=== PATIENT | male | born 1960 | race Caucasian/White ===

== ENCOUNTER 2021-12-14 07:48 | Outpatient (CLI) | payer OTHER, SELFPAY ==
--- NOTE | 2021-12-14 08:08 | ECG_ITS ---
Measurements Intervals [place] Rate: 49 P: 57 MA: 171 QRS: 32 QRSD: 90 T: 59 QT: 432 QTc: 390 Interpretive Statements SINUS BRADYCARDIA BASELINE ARTIFACT NONSPECIFIC T-WAVE ABNORMALITY BORDERLINE ECG NO PREVIOUS ECG AVAILABLE FOR COMPARISON Electronically Signed On 12-14-2021 16:21:50 CDT by Grant Mckeon M.D.
[2021-12-14 08:48] LABS: INR 1.2; Partial Thromboplastin Time 28.2 SECONDS (22.3-36.8); Prothrombin Time 14.4 Seconds (11.1-14.7)
== END 2021-12-14 07:49 | disposition home or self-care (01) ==
LOC: ANHSURGERY 08:01
PROVIDERS: Visit Provider Urology
DX: N20.0 Calculus of kidney (principal); F17.200 Nicotine dependence, unspecified, uncomplicated; Z01.818 Encounter for other preprocedural examination; R94.31 Abnormal electrocardiogram [ECG] [EKG]
CPT/HCPCS: 36415; 85610; 85730; 87086; 93005

== ENCOUNTER 2021-12-18 00:57 | Day surgery (SDC) | payer OTHER, SELFPAY ==
[2021-12-11 15:35] VITALS: BMI 26.6
--- NOTE | 2021-12-11 15:43 | SUR.PREOP ---
Report to the Outpatient Waiting Room, entrance under the green pavilion located off [facility], at time _1030 on date _12/18/21 . OR Time: _1230 . - You and your visitor will be asked to self-screen and do not enter if you have any COVID symptoms. - Only one visitor and NO children visitors are allowed at this time. - The patient visitor is requested to leave or wait in car when not with patient due to restrictions. - A mask is required within the hospital. Patients may have clear liquids (water, carbonated beverages, clear teas, apple juice) until 3 hours prior to surgery with a maximum of 20 ounces. - No food from midnight until time of surgery - Infants may have breast milk until 4 hours before surgery, infant formula 6 hours prior to surgery. - Children will be allowed to drink immediately following surgery. If applicable, please bring a bottle or sippy cup to assist with drinking. Juice, water, soda, and popsicles are readily available. For infants on formula, please bring formula the day of surgery. Pacifiers are allowed. Take the following medications with a SIP of water the morning of surgery: n/a Medications to discontinue per physician n/a Date to take last dose___n/a Please no make-up, nail nepali, hairspray, perfume, deodorant, or body powder the day of surgery. No jewelry (including any body piercings) or valuables the day of surgery, leave them at home. Please take a shower or bath the night before, or the morning of, surgery with an antibacterial soap. Wear comfortable, loose fitting clothing. Children are encouraged to wear pajamas. - Jewelry must be removed prior to entering the operating room. Rings and piercings that are not removed may be cut off. - The hospital will not accept responsibility for valuables. - Please leave all valuables, including medications, at home the day of surgery. If you are going home after surgery, a licensed fuel truck driver must drive you home. - NO public transportation without another adult. - We recommend that an adult stay with you for 24 hours following discharge. - We also recommend that you do not drive, make important decision, drink alcoholic beverages, or take any drugs that were not prescribed by your health care provider for at least 24 hours after your discharge time. For Pediatric surgeries, we recommend two adults accompany the child home (only one inside the building at this time). Follow any additional instructions given to you from your surgeon. If you or anyone in your household have experienced Covid symptoms in the past week, please notify your surgeon or the nurse liaison at the phone number below for possible testing. Telephone instructions given to _ang hill and asked if any additional questions and then verbalized understanding. Patient advised to call surgeon office or pre surgery nurse liaison [phone] if any additional questions.
--- NOTE | 2021-12-17 14:55 | P.PNAN_ITS ---
Anes - Initial Pre Proc Eval Procedure: Operation Date: 12/18/21 12:30 Proposed Procedures p Left Ureteral Extracorporeal Shock Wave Lithotripsy - Sukhwinder Orozco MD Date/Time: 12/17/21 14:55 Surgeon: Sukhwinder Orozco MD Pre Op Diagnosis: left ureteral kidney stone Patient Data Age: 61 Gender: M Height: 1.75 m Weight: 81.81 kg Allergies Allergy/AdvReac Type Severity Reaction Status Date / Time No Known Allergies Allergy Verified 12/11/21 15:16 Home Medications Medication Instructions Recorded Confirmed Type hydrocodone 10 mg-acetaminophen 1 tablet PO PRN 12/11/21 12/11/21 History 325 mg tablet tamsulosin 0.4 mg capsule 0.4 mg PO DAILY 12/11/21 12/11/21 History Patient hx anesthesia problems: none Family hx anesthesia problems: none Results Review: All pre-operative results and documents have been reviewed as part of the pre- operative evaluation. PMFSH Past Medical History Medical History Overweight (BMI 25.0-29.9) Smoker Social History Social History Smoking status: Current every day smoker Tobacco type: cigarettes Additional smoking assessment comments: 1/2ppd x40 Alcohol intake: current Drinks per week: 1 Living arrangements: with family Spiritual care concerns: No Anes - Eval Final PreProcedure Day of Procedure 12/17/21 14:55 Patient weight: overweight Heart: regular rate and rhythm Lungs: clear to auscultation and normal air movement Airway: Mallampati scale class II Neurological: alert and oriented Last oral intake: >/= 8 hours ASA classification: II Emergent: no Anesthetic plan: proceed Anesthesia type and monitoring: general LMA Results Review: All pre-operative results and documents have been reviewed as part of the pre- operative evaluation. Informed Consent: The patient's anesthetic plan and its attendant risks and benefits were discussed with the patient/family/POA. Questions were solicited and answers provided to the satisfaction of the patient/family/POA.
[2021-12-18] VITALS (7 sets, daily range): BP systolic 112–132; BP diastolic 70–96; PULSE 52–60; RESP 12–16; TEMP 36.2–36.7; O2SAT 99–100
--- NOTE | ~2021-12-18 | XR_ITS ---
EXAMINATION: XR abdomen/kub 1V DATE: 12/18/2021 10:36 INDICATION: Kidney stone. TECHNIQUE: A supine view of the abdomen on 2 radiographs was obtained. COMPARISON: None. FINDINGS: There are no dilated loops of bowel. There is a moderate volume of stool in the colon. The kidneys are obscured by bowel. There is a 7 mm density in the area of proximal left ureter at L3. The re are calcifications in the pelvis bilaterally. IMPRESSION: 1. 7 mm density in the area of proximal left ureter at L3, which may be a ureteral stone. 2. Calcifications in the pelvis, likely phleboliths. Distal ureteral stone cannot be excluded. Reviewed, dictated and finalized at location A. IMPRESSION: 1. 7 mm density in the area of proximal left ureter at L3, which may be a urete ral stone. 2. Calcifications in the pelvis, likely phleboliths. Distal ureteral stone bobby ot be excluded.
--- NOTE | 2021-12-18 07:00 | WPDHPUPDATE1 ---
History and Physical Update Update Date/Time: 12/18/21 07:00 History and Physical has been reviewed, including an updated exam of the patient. There are NO changes in the patient's condition. Risks, benefits, and alternatives have been discussed and questions answered. Patient agrees to proceed with procedure.
[2021-12-18] MEDS: LACTATED RINGERS 1,000 ML 30 ML IV CONT (11:00)
[2021-12-18] MEDS: ceFAZolin 2 GM/D5W 50 ML 2 GM/50 ML BAG IVPB (12:26)
--- NOTE | 2021-12-18 12:56 | W.PM.PROC2 ---
Procedure Note - Detailed Date of Procedure 12/18/21 Pre-op Diagnosis Left ureteral stone Post-op Diagnosis Same Procedure Performed Left ESWL Surgeon Sukhwinder Orozco MD Description of Procedure The patient was brought to the operative suite where he was placed in the supine position on the Dornier lithotripsy table. The focal point of the lithotripter was placed at a 7-8mm left mid-ureteral calculus. A total of 2500 shocks were delivered at a power setting of 4. There appeared to be good fragmentation of the stone. The patient tolerated the procedure well and was taken to the recovery room in good condition. Drains No Packing No Pathology None sent Complications No immediate complications Condition Stable
== END 2021-12-18 14:26 | disposition home or self-care (01) ==
PROVIDERS: Visit Provider Urology
PROC: (CPT 50590; principal; 2021-12-18 12:30)
DX: N20.1 Calculus of ureter (principal); N23 Unspecified renal colic; R31.29 Other microscopic hematuria; F17.210 Nicotine dependence, cigarettes, uncomplicated
CPT/HCPCS: 50590; 74018; J0690; J1100; J2250; J2405; J2704; J3010; J7120

== ENCOUNTER 2024-06-14 13:53 | Day surgery (SDC) | payer MEDICARE, OTHER, SELFPAY ==
[2024-06-14] VITALS (7 sets, daily range): BP systolic 134–158; BP diastolic 80–98; PULSE 66–78; RESP 12–23; TEMP 36.3–36.8; O2SAT 92–99
--- NOTE | ~2024-06-14 | XR_ITS ---
EXAMINATION: XR abdomen/kub 1V DATE: 06/14/2024 15:15 INDICATION: Kidney stone. Left flank pain. TECHNIQUE: A supine view of the abdomen on 2 radiographs was obtained. COMPARISON: Abdomen radiographs 12/18/2021 FINDINGS: There is a 2.7 x 1.3 cm calcification in the expected area of proximal left ureter. There a re phleboliths in the pelvis. There are no dilated loops of bowel. IMPRESSION: 1. 2.7 x 1.3 cm stone in proximal left ureter. Reviewed, dictated and finalized at location A. OMETRICS PROFESSOR
--- NOTE | ~2024-06-14 | XR_ITS ---
CORRECTED REPORT moved report and images to [id number] [facility] [place] This report was recreated on 06/18/24. 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 TECHNIQUE: 39 intraoperative fluoroscopic views of the abdomen and pelvis were obtained. I was not present. Fluoroscopy exposure time was 59 seconds. COMPARISON: Abdomen radiograph 06/14/2024 FINDINGS: There is a stone in proximal left ureter. The left-sided retrograde pyelogram demonstrates hydronephrosis. The final images demonstrate a left internal ureteral stent in expected position. IMPRESSION: 1. Stone in proximal left ureter with left-sided hydronephrosis 2. Left internal ureteral stent in expected position. Reviewed, dictated and finalized at location A. ATAL SOCIAL WORKER MTDD
--- OUTSIDE RECORDS SUMMARY | 2024-06-14 13:57 | XMS_ITS ---
Author Organization Unknown Medications Medication Instructions Effective Dates (start - stop) Status pravastatin sodium 20 MG Ora l Tablet - Completed cyclobenzaprine hydrochlorid e 10 MG Oral Tablet - Completed pravastatin sodium 40 MG Ora l Tablet - Completed atorvastatin 20 MG Oral Tablet 2023-02-24 T00:00:00Z - Completed acetaminophen 325 MG / hydro codone bitartrate 5 MG Oral Tablet - Completed pravastatin sodium 20 MG Ora l Tablet - Completed meloxicam 15 MG Oral Tablet [id number] :00:00Z - Completed Patient Care team information Name Category Status Period Participants - - Proposed period not known -
--- OUTSIDE RECORDS SUMMARY | 2024-06-14 13:57 | XMS_ITS | Encounter Summary ---
Author Organization [facility] Address [facility] [place] [address] Care Team Providers Care Acid Wash Operator Name Role Phone Kenny Franklin MD Primary Care Provider [phone] Encounter Details Date Type Department Care Team (Latest Contact Info) Description 06/14/2024 Travel Social History Tobacco Use Types Packs/Day Years Used Date Smoking Tobacco: Every Day Cigarettes Smokeless Tobacco: Never Alcohol Use Standard Drinks/Week Comments Not Currently 0 (1 standard drink = 0.6 oz pur e alcohol) Sex and Gender Information Value Date Recorded Sex Assigned at Not on file Legal Sex Male 10:08 PM TOBACCO EDUCATOR Gender Identity Not on file Sexual Orientation Not on file documented as of this encounter Plan of Treatment Upcoming Encounters Date Type Department Care Team (Late st Contact Info) Description 06/19/2024 8:13 AM TOBACCO EDUCATOR Hospital Encounter [place] [address] [address] [place] [address] [place] [id number] 06/19/2024 8:13 AM TOBACCO EDUCATOR Anesthesia Event [place] [address] [address] Cassius Moreno CRNA [facility] [place] [address] 06/19/2024 8:13 AM TOBACCO EDUCATOR - 06/19/2024 9:50 AM TOBACCO EDUCATOR Surgery [place] [address] [address] [place] [address] [place] [phone] EXTRACOROPOREAL SHOCK WAVE LITHOTRIPSY Scheduled Procedures Name Priority Associated Diagnoses Date/Ti me EXTRACOROPOREAL SHOCK WAVE LITHOTRIPSY N20.1, LEFT URETERAL STONE 06/19/2024 8:13 AM TOBACCO EDUCATOR CYSTOSCOPY RETROGRADES STENT INSERTION N20.1, LEFT URETERAL STONE 06/19/2024 8:13 AM TOBACCO EDUCATOR documented as of this encounter Visit Diagnoses Not on filedocumented in this encounter Care Teams Acid Wash Operator Relationship Specialty Start Date End Date Kenny Franklin MD [address] [place] [address] PCP - General FAMILY PRACTICE 07/31/20 documented as of this encounter
--- OUTSIDE RECORDS SUMMARY | 2024-06-14 13:57 | XMS_ITS | Clinical Summary ---
Author Organization [facility] Address [address] [place] [address] Care Team Providers Care Adult Care Manager Name Role Phone Kenny Franklin MD Primary Care Provider [phone] Allergies No known active allergies Medications lisinopril (PRINIVIL) 10 MG tablet Take 1 tablet (10 mg total) by mouth daily. Active HYDROcodone-acetam inophen 5-325 MG tabletIndications: Acute Pain < 7 Day Supply Take 1 tablet by mouth every 6 (six) hours as needed. Indications : Acute Pain < 7 Day Supply 20 tablet 1 06/14/19 25 Discontin ued(Error ) ondansetron 4 MG disintegrating tablet Take 1 tablet (4 mg total) by mouth every 8 (eight) hours as needed. 20 tablet 1 06/14/19 25 Discontin ued(Error ) azithromycin (ZITHROMAX) 250 MG tablet Take 2 tablets (500 mg total) by mouth daily. Take 2 tablets by mouth on day one then 1 daily for four days. 6 tablet 1 06/14/19 25 Discontin ued(Error ) Encounters Date Type Department Care Team Description 06/14/2024 Travel from Last 3 Months Social History Tobacco Use Types Packs/Day Years Used Date Smoking Tobacco: Every Day Cigarettes Smokeless Tobacco: Never Tobacco Cessation:Ready to Q uit: Not Asked; Counseling Given: Not Answered Alcohol Use Standard Drinks/Week Comments Not Currently 0 (1 standard drink = 0.6 oz pur e alcohol) Sex and Gender Information Value Date Recorded Sex Assigned at Not on file Legal Sex Male 10:08 PM EDUCATION ASSISTANT Gender Identity Not on file Sexual Orientation Not on file Last Filed Vital Signs Vital Sign Reading Time Taken Comments Blood Pressure 105/67 07/31/2020 6:00 AM CDT Pulse 78 07/31/2020 6:00 AM CDT Temperature 36.8 C (98.2 F) 07/31/2020 12:41 AM CDT Respiratory Rate 18 07/31/2020 6:00 AM CDT Oxygen Saturation 94% 07/31/2020 6:00 AM CDT Inhaled Oxygen Concentration - - Weight 90.7 kg (200 lb) 06/14/2024 8:40 AM EDUCATION ASSISTANT Height 175.3 cm (5' 9 ) 06/14/2024 8:40 AM EDUCATION ASSISTANT Body Mass Index 29.53 06/14/2024 8:40 AM EDUCATION ASSISTANT Plan of Treatment Upcoming Encounters Date Type Department Care Team (Late st Contact Info) Description 06/19/2024 8:13 AM EDUCATION ASSISTANT Hospital Encounter [address] [place] [address] [place] [address] [place] [phone] 06/19/2024 8:13 AM EDUCATION ASSISTANT Anesthesia Event [address] [place] [address] Cassius Moreno CRNA [facility] [employer] [place] [address] 06/19/2024 8:13 AM EDUCATION ASSISTANT - 06/19/2024 9:50 AM EDUCATION ASSISTANT Surgery [address] [place] [address] [place] [address] [place] [phone] EXTRACOROPOREAL SHOCK WAVE LITHOTRIPSY Scheduled Procedures Name Priority Associated Diagnoses Date/Ti ar EXTRACOROPOREAL SHOCK WAVE LITHOTRIPSY N20.1, LEFT URETERAL STONE 06/19/2024 8:13 AM EDUCATION ASSISTANT CYSTOSCOPY RETROGRADES STENT INSERTION N20.1, LEFT URETERAL STONE 06/19/2024 8:13 AM EDUCATION ASSISTANT Health Maintenance Due Date Last Done Comments Colorectal Cancer Screening Colonoscopy (10 Years) 1960 Pneumococcal Vaccine: 65+ Years (1 of 2 - PCV) 01/15/1964 Hepatitis C 01/15/1976 DTaP, Tdap and Td Vaccines ( 1 - Tdap) 1977 Zoster Vaccines (1 of 2) 01/15/2008 Annual Medicare Wellness Visit 2023 COVID-19 Vaccine (3 - 2023-2 5 season) 2023 07/20/2020, 06/29/2020 Influenza Adult (#1) 2024 RSV Immunization or 60+ Years (1 - 1-dose 75+ series) 2033 AAA SCREENING Completed 12/11/2021, 09/04/2020, 07/31/2020 Meningococcal B Vaccine Aged Out No l onger eligible based on patient's age to complete this topic Meningococcal Vaccine Aged Out No shira tammy eligible based on patient's age to complete this topic RSV Immunizations Under 20 Months Aged Out No longer eligible b ased on patient's age to complete this topic Procedures Procedure Name Priority Date/Time Associated Diagnosis Comments CT ABD+PEL WO CON SHARITA 12/11/2021 7:0 0 AM CDT Renal colic from Last 3 Months or Most Recently Relevant to Health Maintenance Results * CT ABD+PEL WO CON (12/11/2021 7:00 AM CDT) Anatomical Region Laterality Modality Abdomen Computed Tomogra phy 12/11/2021 7:05 AM CDT Impressions 12/11/2021 7:19 AM CDT IMPRESSION: 1) 8 mm in diameter stone proximal left ureter causing moderate obstruction. 2. No acute inflammatory change, abscess or ascites. 3. No evidence of mechanical bowel obstruction or perforation. Ordered By: ANASTASIA ROBINS III Interpreted By: Aidan Montes MD, 12/11/2021 7:05 AM Narrative 12/11/2021 7:19 AM CDT Examination: CT ABD+PEL WO CON Exam time: 12/11/2021 7:00 AM Clinical history: Left flank pain Comparison: 09/04/2020 Technique: Axial images obtained from xiphoid process to pubic symphysis without contrast using low-dose CT technique. Sagittal and coronal reconstruction. Findings: CT ABDOMEN: Visualized portions of the lung bases demonstrate no acute abnormality. The liver is normal in size. No significant focal intrahepatic lesion. No evidence of cholelithiasis nor gallbladder wall thickening. The spleen, pancreas, and the adrenal glands are unremarkable. There is some nonspecific perirenal stranding bilaterally left greater than right. There is an 8 mm stone in the proximal left ureter causing moderate obstruction. The distal left ureter is unremarkable. No evidence of right ureteral stone nor hydronephrosis. Right renal cyst unchanged. No evidence of solid renal mass lesion. There is no acute inflammatory change, abscess or ascites. No evidence of mechanical bowel obstruction nor perforation. Abdominal aorta and IVC are unremarkable. No significant lymphadenopathy. CT PELVIS: No evidence of pelvic mass nor adenopathy. No acute inflammatory change, abscess or ascites. Procedure Note Aidan Montes MD - 12/11/2021 Examination: CT ABD+PEL WO CON Exam time: 12/11/2021 7:00 AM Clinical history: Left flank pain Comparison: 09/04/2020 Technique: Axial images obtained from xiphoid process to pubic symphysiswithout contrast using low-dose CT technique. Sagittal and coronalreconstruction. Findings: CT ABDOMEN: Visualized portions of the lung bases demonstrate no acuteabnormality. The liver is normal in size. No significant focal intrahepatic lesion. Noevidence of cholelithiasis nor gallbladder wall thickening. The spleen, pancreas, and the adrenal glands are unremarkable. There is some nonspecific perirenal stranding bilaterally left greaterthan right. There is an 8 mm stone in the proximal left ureter causingmoderate obstruction. The distal left ureter is unremarkable. No evidenceof right ureteral stone nor hydronephrosis. Right renal cyst unchanged. Noevidence of solid renal mass lesion. There is no acute inflammatory change, abscess or ascites. No evidence ofmechanical bowel obstruction nor perforation. Abdominal aorta and IVC areunremarkable. No significant lymphadenopathy. CT PELVIS: No evidence of pelvic mass nor adenopathy. No acuteinflammatory change, abscess or ascites. IMPRESSION: 1) 8 mm in diameter stone proximal left ureter causing moderateobstruction. 2. No acute inflammatory change, abscess or ascites. 3. No evidence of mechanical bowel obstruction or perforation. Ordered By: ANASTASIA ROBINS III Interpreted By: Aidan Montes MD, 12/11/2021 7:05 AM Anastasia Robins III, MD CT Final Re sult from Last 3 Months or Most Recently Relevant to Health Maintenance Insurance [employer] [facility] MEDICARE Care Teams Adult Care Manager Relationship Specialty Start Date End Date Kenny Franklin MD [address] [place] [address] PCP - General FAMILY PRACTICE 07/31/20
--- NOTE | 2024-06-14 14:55 | ED_ITS ---
HPI - Male Genitourinary General Chief complaint: Urogenital-Male Stated complaint: sent from urology for kidney stone Time Seen by Provider: 06/14/24 14:45 Focused HPI: This is a 64 year old male that presents to the ER for kidney stone on the left side. Reports he has had pain since Tuesday night. Reports associated nausea. Reports history of kidney stones and previous lithotripsy. He had a CT scan on Tuesday at [facility] that showed a kidney stone. Reports worsening pain today. GENERAL: Well-appearing, well-nourished, and in no acute distress. HEAD: Normocephalic, atraumatic. CHEST: Clear to auscultation. ?No respiratory distress. HEART: Regular rate and rhythm.? NEURO: ?Alert and oriented x3. Patient screened in triage and initial orders placed.? ?Additional care and disposition to be based upon?diagnostic testing and treatment. Source: patient Mode of arrival: ambulatory Limitations: no limitations Related Data Home Medications ?Medication ?Instructions ?Recorded ?Confirmed ?Last Taken ?Type hydrocodone 10 mg-acetaminophen 1 tablet PO PRN 12/11/21 12/18/21 Unknown History 325 mg tablet tamsulosin 0.4 mg capsule 0.4 mg PO DAILY 12/11/21 12/18/21 Unknown History Allergies Allergy/AdvReac Type Severity Reaction Status Date / Time No Known Allergies Allergy Verified 06/14/24 13:53 Review of Systems 2 Review of Systems: All systems reviewed & are unremarkable except as noted in HPI and below PMFSH Past Medical History Medical History (Updated 06/14/24 @ 15:53 by Leah Hanson PA-C) History of kidney stones Smoker Overweight (BMI 25.0-29.9) Social History Social History Smoking status: Current every day smoker Tobacco type: cigarettes Additional smoking assessment comments: 1/2ppd x40 Alcohol intake: current Drinks per week: 1 Living arrangements: with family Spiritual care concerns: No Exam 2 Narrative: GENERAL: Well-appearing, well-nourished, and in no acute distress. HEAD: Normocephalic, atraumatic. EYES: EOMI. CHEST: Clear to auscultation. No respiratory distress. No wheezes rales or rhonchi HEART: Regular rate and rhythm. No murmur heard. Normal peripheral pulses. EXTREMITIES: Normal range of motion. No edema. SKIN: Warm, dry, no rash. NEURO: No focal deficits. Alert and oriented x3. PSYCH: Normal mood and affect Course Consultations Consultation #1: Dr. Orozco will be taking patient to the OR Date: 06/14/24 Vital Signs Vital signs: Vital Signs Temperature 97.9 F 06/14/24 14:03 Pulse Rate 78 06/14/24 14:03 Respiratory Rate 17 06/14/24 14:03 Blood Pressure 151/98 H 06/14/24 14:03 Pulse Oximetry 99 06/14/24 14:03 Oxygen Delivery Room Air 06/14/24 14:03 Temperature 97.9 F 06/14/24 14:03 Pulse Rate 78 06/14/24 14:03 Respiratory Rate 17 06/14/24 14:03 Blood Pressure 151/98 H 06/14/24 14:03 Pulse Oximetry 99 06/14/24 14:03 Oxygen Delivery Room Air 06/14/24 14:03 MDM - Male Genitourinary MDM Narrative Medical decision making narrative: Patient presents to the ER for known kidney stone on outpatient imaging. He is afebrile and nontoxic appearing. Will be taken to the OR by Dr. Orozco for further management. Differential Diagnosis Differential diagnosis: Likely urinary tract infection and other (kidney stone) Lab Data Attestation: I reviewed the patient's lab results. 06/14/24 15:00 06/14/24 15:00 Labs: Lab Results 06/14/24 Range/Units 15:00 WBC 10.7 H (4.5-10.0) K/mm3 RBC 4.76 (4.6-6.20) M/mm3 Hgb 15.4 (14.0-18.0) g/dL Hct 44.9 (42.0-52.0) % MCV 94.3 (80-100) fl MCH 32.4 (26-34) pg MCHC 34.3 (32-36) g/dl RDW 12.0 (11.5-14.5) % Plt Count 213 (150-375) k/mm3 MPV 10.0 (7.4-10.4) fl Immature Gran % (Auto) 0.4 (0-0.5) % Neut % (Auto) 69.8 (45.5-73.1) % Lymph % (Auto) 22.5 (18.3-44.2) % [place] % (Auto) 6.6 (2.6-8.5) % Eos % (Auto) 0.3 (0-4.4) % Baso % (Auto) 0.4 (0.2-1.2) % Lymph # (Auto) 2.42 (0.9-3.2) K/mm3 [place] # (Auto) 0.7 H (0.1-0.6) K/mm3 Eos # (Auto) 0.0 (0-0.3) K/mm3 Baso # (Auto) 0.0 (0.0-0.1) K/mm3 Abs Immat Gran (auto) 0.04 H (0.00-0.031) K/mm3 Absolute Neuts (auto) 7.5 H (1.3-6.7) K/mm3 Absolute Nucleated RBC 0.000 (0.0-0.012) K/mm3 Nucleated RBC % 0.0 (0.0-0.2) % Sodium 137 (137-145) mmol/L Potassium 4.3 (3.4-5.0) mmol/L Chloride 104 (98-107) mmol/L Carbon Dioxide 24 (22-30) mmol/L Anion Gap 9 (4-12) mmol/L BUN 20 (9-20) mg/dL Creatinine 1.63 H (0.7-1.3) mg/dL Estim Creat Clear Calc 40 ml/min Estimated GFR 43 L (59 - ) Glucose 94 (65-110) mg/dL Calcium 9.5 (8.4-10.2) mg/dL Total Bilirubin 0.7 (0.2-1.3) mg/dL AST 24 (17-59) U/L ALT 21 (6-50) U/L Alkaline Phosphatase 122 (38-126) U/L Total Protein 8.0 (6.3-8.2) g/dL Albumin 4.4 (3.5-5.1) g/dL Lipase 58 (23-300) U/L Imaging Data Radiologist's impression: ITS Impressions Abdomen X-Ray 06/14/24 15:18 IMPRESSION: 1. 2.7 x 1.3 cm stone in proximal left ureter. Critical Care Time Critical Care Time Critical Care Time: No Discharge Plan Discharge Clinical Impression: Ureterolithiasis Patient Disposition: Still a Patient Condition: Stable
--- OUTSIDE RECORDS SUMMARY | 2024-06-14 15:14 | XMS_ITS | Data Portability ---
Author Organization [facility], [address] [place] [address] Neurology (ID) Address [address] 4th [place] [address] Care Team Providers Care Dentist Private Practice Name Role Phone KENNY TRIANA Primary Care Provider RAJEEV TORRES Media Technician [phone] Assessment Encounter Date Assessment Date Assessment LastModified by Organization Details LastModified Time 05/25/2024 05/25/2024 Lesion of ear -refer to Derm for further evaluation Hernia -I discussed with [facility] and his that as long as the hernia (which was noted on previous CT) is reducible, pt can continue to monitor -if area is painful/bothersom e, refer to general surgery BP -return in 1-2 weeks for BP check ( will check at home also) Pt verbalizes understanding of treatment plan. Not available 05/25/2024 16:05:12 05/30/2024 05/30/2024 Discussed the importance of using sunscreen SPF 30 as well as wearing a wide brimmed hat. Monitor for any new or changing moles or skin lesions. Recommended yearly full-body skin checks. Discussed ABCDEs of melanoma and gave the patient a skin cancer handout. 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 History of borderline readings in office, all leading to official dx of hypertension. Discussed nature/benefits/a lternatives/and risks of lisinopril including renal insult, hyperkalemia, dry cough. Start lisinopril 10mg daily. F/u in 10 days for BP recheck (while continuing to mx home readings) and BMP. Titrate dose as warranted / tolerated. Discussed smoking cessation and increasing activity as ways to promote cardiovascular health. He is not ready to quit smoking. Discussed lung cancer screening and he is agreeable to LDCT. (of note, he had a cardiac CT done in 2022 & all arteries had the score of 0). Patient & voice understanding and agreement with the plan. [email or web address] Not available 06/04/2024 14:11:12 06/12/2024 06/12/2024 Pt had a LDCT prior to appointment therefore a KUB was done at that time. KUB today shows 2.7 x 1.3 cm ovoid calcific density in left abdomen; recommend CT abdomen/pelvis for further detail. CT--mild to moderate left hydronephrosis due to obstructing 1.5cm calculus. Start Flomax and prn Hydrocodone for stone. CT results sent to Dr. Robins for review. Pt with contact Dr. Robins for directions for follow up. Pt verbalizes understanding of treatment plan. Not available 06/12/2024 14:06:01 Plan of Treatment Reminders Order Date Submit Date Provider Last Modified By Organization Details Last Modified Time Details Appointments Establish ed Patient 15.EST 2024 08:15A M Karen Boykin Not available Not available Not available Lab BMP, serum or plasma 2024 025 [facility], [address], [address], 06/13/2024 16:49:01 Referral dermatolo gist referral 2024 025 [email or web address] Karen HARRIS, [address] [place], [address], 05/30/2024 15:31:14 Procedures None recorded. Surgeries None recorded. Imaging None recorded. Medication Orders Flomax 0.4 mg capsule 2024 025 [facility] [place] - [id number], [address] [place], [address], 06/12/2024 14:59:57 hydrocodo ne 5 mg-acetam inophen 325 mg tablet 2024 025 [place] [id number], [address] [place], [address], 06/12/2024 14:59:56 lisinopri l 10 mg tablet 2024 025 [place] [place] [id number], [address] [place], [address], 06/13/2024 19:04:14 Patient TargetsNo targets recorded. Patient InstructionsNo instructions recorded. Reason for Referral Ticket Collector Or Usher Referral for L esion of left ear Referring Physician: Yesisca Mclean, Family Medicine, Encounter Date: 05/25/2024 Results Created Date Observation Date Name Description Value Unit Range Abnormal Flag Note LastModifiedBy Organization Detail LastModifiedTime 03/15/20 24 03/16/2024 surgi julien patho logy study tissue exam biopsy [facility] [address],[place] [address] Ph. [phone] Zach Tong MD, PhD, Medic al Dire RAJEEV Townsend MD nt: KIRILL FLORES e ID: [id number] Repor t Statu s: Final :0 1959 Case #: [id number] Age: 64 Y Gende r: M Date Colle cted: 03/15 MRN # : [id number] Date Recei david: 03/15 Repor suraj Date: 03/16 FINAL DIAGN OSIS: Rectu m, polyp , biops y: -Tubu lar adeno ma Elect kinsey kim Verif ied by Man lux MD Elect kinsey chapa 03/16 12:13 SPECI MEN SOURC E: Rectu m, polyp , biops y GROSS DESCR IPTIO N: The speci men conta iner( s) and requi sitio n have the same patie nt name. Recei david in 10% neutr al buffe red forma donald for forma donald-f ixed paraf fin-e mbedd ed secti ons label ed A, recta l polyp is a singl e fragm ent of sorto- loera soft tissu e that is 0.5 cm in great est dimen sho. The speci men is entir elsie submi tted for histo logic study in one casse tte. CLINI JULIEN INFOR MATIO N: Histo ry of polyp s. Scree frederick colon oscop y. Not Available [facility] [address] [place] [address], [address], 03/16/2024 13:16:12 05/30/19 25 06/04/2024 surgi julien patho logy study tissue exam [facility] [address] [place] [address],[place] [address] Ph. 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 Recei david in 10% neutr al buffe red forma donald for forma donald-f ixed paraf fin-e mbedd ed secti ons label ed L super ior ear helix is an unori ented 0.7 x 0.5 cm fragm ent of white -loera skin excis ed to a depth of 0.1 cm. There is no defin ite lesio n ident ified gross ly on the skin surfa ce, howev er it does appea r rough ened. The speci men is inked , trise cted, and entir elsie submi tted for histo logic study in one casse tte. CLINI JULIEN INFOR MATIO N: Skin biops y, left super ior ear helix , HAK vs SCC. Not Available [facility] [address] [place] [address], [address], 06/04/2024 17:22:30 02/21/20 24 05/04/2023 imagi ng/di agnos tic resul t No observ ation record ed. [email or web address] Not Available 01:28:34 02/21/20 24 08/03/2023 imagi ng/di agnos tic resul t No observ ation record ed. [email or web address] Not Available 01:29:01 02/21/20 24 04/07/2023 imagi ng/di agnos tic resul t No observ ation record ed. [email or web address] Not Available 01:29:07 02/21/20 24 04/22/2023 imagi ng/di agnos tic resul t No observ ation record ed. [email or web address] Not Available 01:29:08 02/21/20 24 04/22/2023 imagi ng/di agnos tic resul t No observ ation record ed. [email or web address] Not Available 01:29:09 06/12/19 25 06/12/2024 XR, kidne y + urete r + bladd er No observ ation record ed. [facility] - Radiology [address] [place], [address], 06/12/2024 15:35:58 06/12/19 25 06/12/2024 CT, abdom en + pelvi s, w/o contr ast No observ ation record ed. [facility] - Radiology [address] [place], [address], 06/12/2024 14:45:49 Result Notes None recorded. 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 099271729 Active 2023 YOVANY HOROWITZ PA-C [address] [place] [address], [address] , [facility] 4 15:47:22 Lesion of left ear 41448514282 24947 Completed 202406/04/2024 05/25/23 Scaling lesion left upper pinna; refer to Derm, whre in no tx rec'd Emili Cm APRN, LINING MARKER [address] [place] [address], [address] , [facility] 5 10:03:46 Elevated blood-pr essure reading without diagnosi s of hyperten sho 828891349 Completed 202406/04/2024 05/25/24 BP 150/98; recheck BP in 1-2 weeks Emili Cm APRN, LINING MARKER [address] [facility] [place], [address] , [facility] 5 13:59:31 Solar degenera tion 59939080 Active 2024 Karen Boykin PA-C [address] [facility], [place], [address] , [facility] 5 13:36:39 Seborrhe ic keratosi s 795685254 Active 2024 Karen Boykin PA-C [address] [facility] [place], [address] , [facility] 5 11:13:19 Neoplasm of uncertai n behavior of skin 66139470 Active 2024 Karen Boykin PA-C [address] [facility] [place], [address] , [facility] 5 12:17:54 Lesion of left ear 87429962994 68267 Active 202405/25/24 Scaling lesion left upper pinna; refer to Derm, whre in no lesion bx (path pending) Emili Cm APRN, LINING MARKER [address] [facility] [place], [address] , [facility] 5 10:03:46 Essentia l hyperten sho 10582670 Active 2024 dx'd at age 64. 2/'25 start lisinopr il, then trzn to amlodipi ne (p acute rise in creatini ne, also in setting of obstruct shari left ureter stone). 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 Active 2024 Karen Boykin PA-C [address] [facility] [place], [address] , [facility] 5 17:30:29 Smokes tobacco daily 779938360 Active 2024 Tila Jarvis null, [facility] 5 13:53:55 Left flank pain 828448898 Active 2024 Yessica Mclean PA-C [address] [place], [address] , [facility] 5 12:31:48 Kidney stone 00763667 Active 202406/12/24 Mild to moderate hydronep hrosis d/t obstruct ing 1.5 cm stone; start Flomax and f/u with urology Yessica Mclean PA-C [address] [facility] [place], [address] , [facility] 5 14:06:58 Serum creatini ne above referenc e range 617200898 Active 202406/13/24 creatini ne 1.6 on f/u p starting lisinopr dc, but also in setting of acute obstruct shari renal stone. Though likely 2/2 stone, will trzn to amlodipi ne (in case of renal insult from ACEI). Emili Cm APRN, LINING MARKER [address] [place] [address], [address] , [facility] 5 18:02:25 Partial thicknes s rotator cuff tear 279783275 Completed 202310/16/2023 s/p surgical repairo of partial thicknes s rotator cuff tear & acromioc lavicula r joint arthriti s Emili Cm APRN, LINING MARKER [address] [place], [address] , [facility] 4 17:35:01 Adrenal adenoma 387712589 Completed 202310/16/2023 Left. Incident al finding on CT (eval hematuri a). Emili Cm APRN, LINING MARKER [address] [place] [address], [place], [address] , [facility] 4 17:21:55 Cardiac computed tomograp hy for calcium scoring Completed 202310/16/2023 Total score 0 Emili Cm APRN, LINING MARKER [address] [place] [address], [address] , [facility] 4 17:22:23 Bilatera l inguinal hernia 81066374 Active 2023 small, fat containi ng, incident al on CT (eval hematuri a) Emili Cm APRN, LINING MARKER [address] [place] [address], [address] , [facility] 4 17:22:41 Pain of bilatera l knee joints 05947797812 4104 Active 2023 improved off of atorvast atin, so trzn'd to pravasta tin Emili Cm APRN, LINING MARKER [address] [place] [address], [address] , [facility] 4 17:25:32 Multiple renal cysts 015244184 Active [address] ([facility] ER visit for abd pain). See also hematuri a Emili Cm APRN, LINING MARKER [address] [place] [address], [address] , [facility] 4 17:26:52 Screenin g colonosc opy Active s/p repeat colonosc opy w/ Tubular Adenoma polypect [place]. Kenny Triana MD [address] [place] [address], [address] , [facility] 5 12:35:04 Blood in urine 57723222 Active 2023 2+ on UA 07/31/20 at [facility] ER visit for abd pain. Urology (Dr. Robins) onboard for concurre nt kidney cysts. Urine cytology : atypical urotheli al cells of uncertai n signific ance. Emili Cm APRN, LINING MARKER [address] [place] [address], [address] , [facility] 4 17:28:42 Hyperlip idemia 16071150 Active 2023 Trzn Atorvast atin to Pravasta tin d/t joint pain, LDL 99 (LDL was 72 on atorvast atin ), so increase pravasta tin to 40mg. baesline : total 204, HDL 37, LDL 137.6 for 10 yr risk 23%. Atorvast atin started . Emili Cm APRN, LINING MARKER [address] [place] [address], [address] , [facility] 4 10:38:04 Muscle spasm of head and/or neck 08597814 Completed 09/06/23 Tx Flexeril & Meloxica m Kenny Triana MD [address] [place] [address], [address] , [facility] 5 12:32:34 Tear of meniscus of knee 141633195 Completed 202310/16/2023 s/p partial medial meniscec antonio and chondrop lasty medial femoral condyle 07/19/22. Emili Cm APRN, LINING MARKER [address] [place] [address], [address] , [facility] 4 17:34:54 Tick bite 67140941 Completed No assoc'd rash or fever; neg Lyme titer Kenny Triana MD [address] [place] [address], [address] , [facility] 5 12:32:05 Umbilica l hernia 115210808 Active 2023 small, fat containi ng, incident al finding on CT (eval hematuri a). Emili Cm APRN, LINING MARKER [address] [place] [address], [address] , [place] - [facility] 17:35:59 Problem Notes Documentation Provider Name and Address Organization Details Recorded Time [facility] [address] [place] [address] Edi Flores 64yo M 1960 #[id number] 03/15/2024 Esme Triana MD, Edi Flores was seen in our office today 03/15/2024, and a copy of that evaluation is enclosed. Thank you for allowing us to participate in the care of your patient. Please contact us with any questions. Sincerely, Electronically Signed by: RAJEEV TORRES MD Encounter Reason/DateNone recorded 03/15/2024 - 09:40AM - [facility] Gastroenterology (ID)ProblemsReviewed Problems Tubular adenoma of colon - Onset: 02/17/2024 Hyperlipidemia - Onset: 10/16/2023 - Trzn Atorvastatin to Pravastatin d/t joint pain, LDL 99 (LDL was 72 on atorvastatin ), so increase pravastatin to 40mg. baesline : total 204, HDL 37, LDL 137.6 for 10 yr risk 23%. Atorvastatin started . Bilateral inguinal hernia - Onset: 10/16/2023 - small, fat containing, incidental on CT (eval hematuria) Umbilical hernia - Onset: 10/16/2023 - small, fat containing, incidental finding on CT (eval hematuria). Multiple renal cysts - Onset: 10/16/2023 - on CT ([facility] ER visit for abd pain). See also hematuria Blood in urine - Onset: 10/16/2023 - 2+ on UA 07/31/[address] [facility] ER visit for abd pain. Urology (Dr. Robins) onboard for concurrent kidney cysts. Urine cytology : atypical urothelial cells of uncertain significance. Osteoarthritis of acromioclavicular joint - Onset: 08/03/2023 Tick bite - Onset: 10/16/2023 - 09/06/23 No associated rash or fever; neg Lyme titer Screening for malignant neoplasm of prostate - discussed 09/22/18. PSA 2.94 --> PSA 3.63. Repeat due by Screening colonoscopy - Onset: 10/16/2023 - advanced adenoma , GI rec'd f/u colonoscopy 3 yrs, due Pain of bilateral knee joints - Onset: 10/16/2023 - improved off of atorvastatin, so trzn'd to pravastatin Muscle spasm of head and/or neck - Onset: 10/16/2023 - 09/06/23 Tx Flexeril & Meloxicam Allergies Allergies not reviewed (last reviewed 03/15/2024) NKDA No Known Drug Allergies (Active) OnsetDate: 05/24/2013; Medications Medications not reviewed (last reviewed 03/15/2024) NameDate Source pravastatin 40 mg tabletTAKE 1 TABLET BY MOUTH EVERY DAY02/20/24 filled surescripts Family History Father - Heart disease - Cerebrovascular accident - Diabetes mellitus Mother - Heart disease - Cerebrovascular accident - Family history of malignant neoplasm of thyroid - Malignant tumor of breast Sister - Malignant tumor of colon Social History Alcohol use, Last Assessed: 15 May 2015 1:21PM Type: Chronic Identified By: CARLY العراقي Last Edited: 10 Feb 2018 1:41AM ICD9 Code: V49.89 Last Reviewed Date: 20180210 SnomedCode: [id number] ICD10 Code: Z78.9 LastAssessedBy: CARLY العراقي (Gastroenterology) Caffeine use, Last Assessed: 15 May 2015 1:21PM Type: Chronic Identified By: CARLY اعلراقي Last Edited: 15 May 2015 1:22PM ICD9 Code: V49.89 Last Reviewed Date: 20150515 SnomedCode: [id number] ICD10 Code: Z78.9 LastAssessedBy: CARLY العراقي (Gastroenterology) Current every day smoker, Last Assessed: 15 May 2015 1:22PM Type: Chronic Identified By: CARLY العراقي Last Edited: 15 May 2015 1:22PM ICD9 Code: 305.1 Last Reviewed Date: 20150515 SnomedCode: [id number] ICD10 Code: F17.200 LastAssessedBy: CARLY العراقي (Gastroenterology) , Last Assessed: 15 May 2015 1:21PM Type: Chronic Identified By: CARLY العراقي Last Edited: 15 May 2015 1:22PM Last Reviewed Date: 20150515 SnomedCode: [id number] LastAssessedBy: CARLY العراقي (Gastroenterology) Surgical History Repair of rotator cuff by suture - left Carpal tunnel surgery Arthroscopic meniscectomy - right knee Anterior decompression of shoulder joint - 08/03/2023 - left shoulder/ debride partial thickness RCT Arthroscopy of shoulder with excision of distal clavicle - 08/03/2023 - left shoulder Additional HistoryNone recordedHistory of Present IllnessSC ASC OP HPIReported bypatient.The history and physical review:The history and physical dated has been reviewed, the patient has been examined and no change has occurred in the patient's condition since the history and physical was completed. Pre-Procedure Diagnosis:D12.6 Date of Procedure:03/15/24 Proposed Procedure/Surgery:Colonoscopy Physician Performing the Procedure:Rajeev Torres Proposed Anesthetic:Monitored Care Chief Complaint:Benign neoplasm of colon Allergies:NKDA Tobacco, Alcohol or Drug use:No Tobacco use; No Drug use Pertinent Illnesses orsurgeries:Dysuria, frequency or hematuria Blood Pressure:142/80 Pulse:64 Height:5'9 Weight:203 General:Normal Body Habitus EENT:PERRLAReview of SystemsROS as noted in the HPIPhysical ExamOBJECTIVE:General Appearance: Patient is dressed appropriately for outside temperature and well-groomed. Appears hydrated and nourished. Appears to be in no acute distress. Integument: Age and ethnically appropriate appearance of skin. Skin warm and dry. Respiratory: Respirations regular and non-labored. No respiratory distress or accessory muscle use noted. No cough. Cardiovascular: No peripheral edema noted. GI: Symmetric abdominal contours. Abdomen soft and not distended. No obvious hernias or masses noted. Psychological: No evidence of depression or mood disturbances. Makes good eye contact and engages in appropriate conversation. No evidence of self-harm. Good insight and judgment. Reviewed pertinent diagnostic tests, lab work, and imaging. These were reviewed with the patient.Procedure DocumentationNone recordedAssessment/PlanNone recorded Return to Office Patient will return to the office as needed Emili Cm, CASING TRIMMER, LINING MARKER [address] [place] [address], [address], [facility] 03/15/2024 10:04:22 Ticket Collector Or Usher Consult Note : [facility] [address] [place] [address] Edi Flores 64yo M 1960 #[id number] 05/30/2024 Esme Triana MD, Edi Flores was seen in our office today 05/30/2024, and a copy of that evaluation is enclosed. Thank you for allowing us to participate in the care of your patient. Please contact us with any questions. Sincerely, Electronically Signed by: KAREN BOYKIN PA-C Encounter Reason/DateNone recorded 05/30/2024 - 09:45AM - [facility] ([place])ProblemsProblems not reviewed (last reviewed 05/25/2024) Hyperlipidemia - Onset: 10/16/2023 - Trzn Atorvastatin to Pravastatin d/t joint pain, LDL 99 (LDL was 72 on atorvastatin ), so increase pravastatin to 40mg. baesline : total 204, HDL 37, LDL 137.6 for 10 yr risk 23%. Atorvastatin started . Bilateral inguinal hernia - Onset: 10/16/2023 - small, fat containing, incidental on CT (eval hematuria) Umbilical hernia - Onset: 10/16/2023 - small, fat containing, incidental finding on CT (eval hematuria). Multiple renal cysts - Onset: 10/16/2023 - on CT ([facility] ER visit for abd pain). See also hematuria Blood in urine - Onset: 10/16/2023 - 2+ on UA 07/31/20 at [facility] ER visit for abd pain. Urology (Dr. Robins) onboard for concurrent kidney cysts. Urine cytology : atypical urothelial cells of uncertain significance. Solar degeneration - Onset: 05/29/2024 Osteoarthritis of acromioclavicular joint - Onset: 08/03/2023 Elevated blood-pressure reading without diagnosis of hypertension - Onset: 05/25/2024 - 05/25/24 BP 150/98; recheck BP in 1-2 weeks Screening for malignant neoplasm of prostate - Annual PSA: 2.9 on --> 3.6 on Screening colonoscopy - s/p repeat colonoscopy w/ Tubular Adenoma polypectomy. Pain of bilateral knee joints - Onset: 10/16/2023 - improved off of atorvastatin, so trzn'd to pravastatin Lesion of left ear - Onset: 05/25/2024, Left - 05/25/23 Scaling lesion left upper pinna; refer to Derm Allergies Reviewed Allergies NKDA No Known Drug Allergies (Active) OnsetDate: 05/24/2013; Medications Reviewed Medications NameDate Source pravastatin 40 mg tabletTAKE 1 TABLET BY MOUTH EVERY DAY02/20/24 filled surescripts Family HistoryReviewed Family History Father - Heart disease - Cerebrovascular accident - Diabetes mellitus Mother - Heart disease - Cerebrovascular accident - Family history of malignant neoplasm of thyroid - Malignant tumor of breast Sister - Malignant tumor of colon Social HistoryReviewed Social History Substance UseDo you or have you ever smoked tobacco?: Current every day smokerAlcohol use, Last Assessed: 15 May 2015 1:21PM Type: Chronic Identified By: CARLY العراقي Last Edited: 10 Feb 2018 1:41AM ICD9 Code: V49.89 Last Reviewed Date: 20180210 SnomedCode: [id number] ICD10 Code: Z78.9 LastAssessedBy: CARLY العراقي (Gastroenterology) Caffeine use, Last Assessed: 15 May 2015 1:21PM Type: Chronic Identified By: CARLY العراقي Last Edited: 15 May 2015 1:22PM ICD9 Code: V49.89 Last Reviewed Date: 20150515 SnomedCode: [id number] ICD10 Code: Z78.9 LastAssessedBy: CARLY العراقي (Gastroenterology) Current every day smoker, Last Assessed: 15 May 2015 1:22PM Type: Chronic Identified By: CARLY العراقي Last Edited: 15 May 2015 1:22PM ICD9 Code: 305.1 Last Reviewed Date: 20150515 SnomedCode: [id number] ICD10 Code: F17.200 LastAssessedBy: CARLY العراقي (Gastroenterology) , Last Assessed: 15 May 2015 1:21PM Type: Chronic Identified By: CARLY العراقي Last Edited: 15 May 2015 1:22PM Last Reviewed Date: 20150515 SnomedCode: [id number] LastAssessedBy: CARLY العراقي (Gastroenterology) Surgical History Repair of rotator cuff by suture - left Carpal tunnel surgery Colonoscopy and biopsy - 02/24/2024 - due 02/2029-5yr recall Ann[place] Anterior decompression of shoulder joint - 08/03/2023 - left shoulder/ debride partial thickness [facility] Arthroscopy of shoulder with excision of distal clavicle - 08/03/2023 - left shoulder Arthroscopic meniscectomy - 07/19/2022 - right knee Additional HistoryNone recordedHistory of Present IllnessNP referred by lisa henderson at [place]. L ear lesion. been there a while. no tx. areas also on chest. here with today lucia.Review of SystemsAdditionally reports:Denies fevers, chills, muscle aches, malaise, weight changes. Physical ExamNone recordedProcedure DocumentationNone recordedAssessment/PlanDiscus sed the importance of using sunscreen SPF 30 as well as wearing a wide brimmed hat. Monitor for any new or changing moles or skin lesions. Recommended yearly full-body skin checks. Discussed ABCDEs of melanoma and gave the patient a skin cancer handout. 1.Solar itldiwxcaZ98.8: Other skin changes due to chronic exposure to nonionizing radiation Return to Office Patient will return to the office as needed Yessica Mclean PA-C [address] [place] [address], [phone], [facility] 05/30/2024 19:19:48 Procedures Surgical History Date Name Laterality Status Provider Name and Address Organization Details Recorded Time 05/30/19 25 Shave Biopsy completed Karen Boykin PA-C [address] [place] [address], [phone], [facility] 05/30/2024 11:11:02 02/24/20 24 Colonoscopy and biopsy completed Jane Spears [facility] 03/20/2024 14:33:12 08/03/19 24 arthroscopy of shoulder with excision of distal clavicle completed Rosaline Lu [facility] 01/02/2024 16:59:19 08/03/19 24 anterior decompression of shoulder joint completed Rosaline Lu [facility] 01/02/2024 16:59:57 07/20/19 23 arthroscopic meniscectomy completed Kenny Triana MD [address] [place] [address], [phone], [facility] 05/24/2024 12:33:26 Carpal tunnel surgery completed Emili Cm APRN, LINING MARKER [address] [place] [address], [phone], [facility] 10/16/2023 17:36:51 repair of rotator cuff by suture completed Emili Cm APRN, LINING MARKER [address] [place] [address], [phone], [facility] 10/16/2023 17:37:27 Imaging Results Imaging Date Name Status LastModified by Organiz ation Details LastModified Time 05/04/2023 imaging/diagn ostic result completed Information not available 02/21/2024 01:28:34 08/03/2023 imaging/diagn ostic result completed Information not available 02/21/2024 01:29:01 04/07/2023 imaging/diagn ostic result completed Information not available 02/21/2024 01:29:07 04/22/2023 imaging/diagn ostic result completed Information not available 02/21/2024 01:29:08 04/22/2023 imaging/diagn ostic result completed Information not available 02/21/2024 01:29:09 06/12/2024 XR, kidney + ureter + bladder completed [facility] [address] [place], [address], 06/12/2024 15:35:58 06/12/2024 CT, abdomen + pelvis, w/o contrast completed [facility] [address] [place], [address], 06/12/2024 14:45:49 Procedure Notes None recorded. Medical Equipment None Reported. Allergies No known drug allergies Medications Name Sig Start Date Stop Date Status Note LastModified by Organization Details LastModified Time cyclobenzapr ine 10 mg tablet TAKE 1/2 TO 1 TABLET BY MOUTH NIGHTLY AT BEDTIME NEEDED 03/15 completed Not Available Not Available Not Available Flomax 0.4 mg capsule Take 1 capsule every day by oral route at bedtime. 2024 active Not Available Not Available Not Avai lable atorvastatin 20 mg tablet TAKE 1 TABLET AT BEDTIME. 03/15 completed Not Available Not Available Not Available pravastatin 40 mg tablet TAKE 1 TABLET BY MOUTH EVERY DAY active Not Available Not Available No t Available hydrocodone 5 mg-acetamino phen 325 mg tablet Take 1-2 tablets every 6 hours as needed for pain 2024 active Not Available Not Available Not Avai lable meloxicam 15 mg tablet TAKE 1 TABLET BY MOUTH EVERY DAY WITH FOOD 03/15 completed Not Available Not Available Not Available amlodipine 2.5 mg tablet Take 1 tablet every day by oral route. 2024 active Not Available Not Available Not Avai lable lisinopril 10 mg tablet TAKE 1 TABLET BY MOUTH EVERY DAY 06/13 completed Not Available Not Available Not Available pravastatin 20 mg tablet TAKE 1 TABLET BY MOUTH EVERY DAY 10/20 completed Not Available Not Available Not Available Vitals Date Recorded Body weight Body temperature Heart rate Oxygen saturation Oxygen saturation in Arterial blood by Pulse oximetry Systolic blood pressure Diastolic blood pressure Systolic blood pressure Diastolic blood pressure Provider Name and Address Organization Details Last Updated DateTime 5 79445.9 4 g 97.3 [degF] 64 /min 97 % 97 % 160 mm[Hg] 100 mm[Hg] 150 mm[Hg] 98 mm[Hg] Azra [facility] 5 14:56:58 Date Recorded Body weight Body temperature Heart rate Oxygen saturation Oxygen saturation in Arterial blood by Pulse oximetry Systolic blood pressure Diastolic blood pressure Provider Name and Address Organization Details Last Updated DateTime 5 27160.1 9 g 96.9 [degF] 64 /min 98 % 98 % 160 mm[Hg] 102 mm[Hg] Linda palacios [facility] 5 12:47:36 Date Recorded Body weight Body temperature Heart rate Oxygen saturation Oxygen saturation in Arterial blood by Pulse oximetry Systolic blood pressure Diastolic blood pressure Provider Name and Address Organization Details Last Updated DateTime 5 06307.2 5 g 98 [degF] 88 /min 99 % 99 % 130 mm[Hg] 84 mm[Hg] Susie Griffin [facility] 5 12:19:34 Social History None recorded. Functional Status None recorded. Mental Status None recorded. Family History Relationship Description Onset Age of this Age Resolved Age Notes LastModified by Organization Details LastModified Time Father Heart disease [email or web address] Not available 2023 17:37:51 Father Cerebrovascu lar accident [email or web address] Not available 17:38:07 Father Diabetes mellitus [email or web address] Not available 2023 17:39:36 Mother Heart disease [email or web address] Not available 2023 17:37:51 Mother Cerebrovascu lar accident Not available 17:38:07 Mother Family history of malignant neoplasm of thyroid [email or web address] Not available 2023 17:39:18 Mother Malignant tumor of breast [email or web address] Not available 2023 17:39:27 Sister Malignant tumor of colon [email or web address] Not available 2023 17:38:22 Medical History Condition Response Skin Problems Immunizations Vaccine Type Date Status Note Provider Nam e and Address Organization Details Recorded Time COVID-19, mRNA, LNP-S, PF, 30 mcg/0.3 mL dose 06/29/2020 [facility] 05/25/2024 14:32:11 COVID-19, mRNA, LNP-S, PF, 30 mcg/0.3 mL dose 07/20/2020 [facility] 05/25/2024 14:32:11 COVID-19, mRNA, LNP-S, PF, 30 mcg/0.3 mL dose 04/10/2021 [facility] 05/25/2024 14:32:11 COVID-19, mRNA, LNP-S, bivalent, PF, 30 mcg/0.3 mL dose 04/12/2022 completed [facility] 05/25/2024 14:32:11 Past Encounters Encounter ID Performer Location Encounter Start Date Encounter Closed Date Diagnosis/Indication Diagnosis SNOMED-CT Code Diagnosis ICD10 Code Diagnosis Note [id number] Kali Castanon MD [facility] Orthopedi cs (ID) [address] [place] [address] 08/03/2023 11:16:46 08/10/2023 14:03:28 Osteoarthritis of acromioclavicular joint 110272388 M19.963 [id number] Kali Castanon MD [address] [facility] (ID) [address] [place] [address] 08/17/2023 16:15:37 08/17/2023 18:14:41 Partial thickness rotator cuff tear 215961204 M75.112 M19.057 [id number] Kali Castanon MD [facility] Orthopedi cs (ID) [address] [place] [address] 10/10/2023 13:06:54 10/14/2023 05:53:00 [id number] Sammy Ridley MD [facility] GI Anesthesi a S [address] [place] [address] 03/15/2024 09:17:16 03/28/2024 14:04:44 [id number] Rajeev Torres MD [facility] Gastroent erology (ID) [address] [place] [phone] 03/15/2024 09:17:17 03/19/2024 09:08:26 [id number] Kenny Triana MD [facility] (ID) [address] [place] [address] 05/25/2024 14:27:15 05/25/2024 15:15:26 Lesion of left ear 0876753062 227661 H93.92 Umbilical hernia 8564204 07 K42.9 small, fat containing , incidental finding on CT 5/'21 (eval hematuria) . 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 (ID) [address] [place] [address] 06/04/2024 12:39:18 06/04/2024 14:25:04 Essential hypertension 73504710 I10 [id number] Kenny Triana MD [facility]) [address] [place] [address] 06/12/2024 12:11:39 06/12/2024 12:52:48 Left flank pain 442875412 R10.9 History of calculus of kidney 944739262 Z87.442 Kidney stone 04612004 N2 0.0 Health Concerns Section Related Observation LastModified by Organization Detai ls LastModified Time None Recorded Concern Status LastModified by Organization Details LastModified Time None Recorded Advance Directives Directive None Recorded Payers Encounter Date Sequence Insurance Name Policy Number Policy Knight Covered Member ID Knight Member ID Guarantor Name 03/15/2024 1 [place] Edi Flores [id number] Edi Flores 03/15/2024 2 [facility] [employer] [id number] Lucia Flores [id number] OI Edi Flores 05/25/2024 1 [place] Edi Flores [id number] Edi Flores 05/25/2024 2 [facility] [employer] [id number] Lucia Flores [id number] OI Edi Flores 05/30/2024 1 [place] Ed[place] Flores [id number] Edi Flores 05/30/2024 2 [facility] [employer] [id number] Lucia Flores [id number] OI Edi Flores 06/04/2024 1 [place] Ed[place] Flores [id number] Edi Flores 06/04/2024 2 [facility] [employer] [id number] Lucia Flores [id number] OI Edi Flores 06/12/2024 1 [place] Edi Flores [id number] Edi Flores 06/12/2024 2 [facility] [employer] [id number] Lucia Flroes [id number] OI Edi Flores Notes Date Note Type Note Provider Name and Address Organization Details Recorded Time 03/15/2024 text/html [facility] PRE-ANEST HETIC EVALUATIONReported bypatient.Reason for Visit:PROPOSED PROCEDURE: Colonoscopy with possible biopsy/polypectomy; SURGEON: Brian; PREOP DIAGNOSIS: Benign neoplasm of colon, Review of Systems General:Exercise tolerance moderate; Denies SOB, [place], PND; Denies chest pain or chest tightness Cardiac:No Hx of CAD; Hyperlipidemia Pulmonary:Current every day smoker; Smoking Hx, 1 ppd 50 years Musculoskeletal:Osteoar thritis Prior Anesthetic Complication:no history of anesthesia complications Family Anesthetic Hx:no history of anesthesia complications Physical Exam: AirwayMP II TeethDentures upper and lower NeckFull range of motion CardiovascularRegular rate and rhythm RespiratoryDimished breath sounds bilaterally, but clear GastrointestinalNPO status >6 hrs solids, >2 hrs clear liquids Vital Signs:Vital signs reviewed. Please refer to nursing preop note for values Assessment:ASA PS: III Plan:MAC Discussion:I have discussed with the patient the anesthetic plan, alternatives, pertinent risks, and complications; including but not limited to PONV, dental injury, sore throat, WI, stroke, etc. All questions were answered. Patient verbalize(s) understanding and agree(s) to proceed. Sammy Ridley MD [address] [facility] [place], [address], [facility] 03/15/2024 09:46:22 03/15/2024 text/html [facility] OP HPIRep orted bypatient.The history and physical review:The history and physical dated has been reviewed, the patient has been examined and no change has occurred in the patient's condition since the history and physical was completed. Pre-Procedure Diagnosis:D12.6 Date of Procedure:03/15/24 Proposed Procedure/Surgery:Colon oscopy Physician Performing the Procedure:Rajeev Torres Proposed Anesthetic:Monitored Care Chief Complaint:Benign neoplasm of colon Allergies:NKDA Tobacco, Alcohol or Drug use:No Tobacco use; No Drug use Pertinent Illnesses orsurgeries:Dysuria, frequency or hematuria Blood Pressure:142/80 Pulse:64 Height:5'9 Weight:203 General:Normal Body Habitus EENT:TORRES Torres MD [address] [place] [address], [address], [facility] 03/15/2024 09:57:35 05/25/2024 text/html [place] presents tod ay with complaint of lesion on left ear and possible hernia Lesion xcv-ckgsoea-lxudcs at times-no bleeding noted Hernia-pt has protrusion of umbilical area-no pain-he is able to reduce the area Yessicakylee Mclean PA-C [address] [place] [address], [address], [facility] 05/28/2024 14:14:03 05/30/2024 text/html SECURITIES ANALYST Goes by [facility] referred by lisa henderson at [place]. L ear lesion. been there a while. no tx. areas also on chest. here with today lucia. Karen Boykin PA-C [address] [place] [address], [phone], [facility] 06/04/2024 17:30:52 06/04/2024 text/html Here for 2 week f/u on elevated BP- ZHANG on 06/02/24 but feeling fine now - home BP cuff today was 168/112; manual was 160/102 -no CP, no SOB is a smoker, 25 pk year history Emili Cm, CASING TRIMMER, LINING MARKER [address] [place] [address], [address], [facility] 06/04/2024 14:11:31 06/12/2024 text/html [place] presents tod ay with complaint of left flank pain-sx started last night-had dry heaves overnight-history of kidney stones which had similar sx as what he is experiencing now-no known hematuria-pain is better today but still present Yessica Mclean PA-C [address] [place] [address], [phone], [place] [facility] 06/14/2024 09:23:57
--- OUTSIDE RECORDS SUMMARY | 2024-06-14 15:14 | XMS_ITS ---
[...] - Completed meloxicam 15 MG Oral Tablet [id number] :00:00Z - Completed Patient Care team information Name Category Status Period Participants - - Proposed period not known -
--- OUTSIDE RECORDS SUMMARY | 2024-06-14 15:14 | XMS_ITS | Clinical Summary ---
Author Organization [facility] Address [address] [place] [address] Care Team Providers Care Senior Quality Control Technician Name Role Phone Kenny Franklin MD Primary Care Provider [phone] Allergies No known active allergies Medications lisinopril [...] on file Legal Sex Male 10:08 PM SUPERVISOR STATEMENT CLERKS Gender Identity Not on file Sexual Orientation [...] 90.7 kg (200 lb) 06/14/2024 8:40 AM SUPERVISOR STATEMENT CLERKS Height 175.3 cm (5' 9 ) 06/14/2024 8:40 AM SUPERVISOR STATEMENT CLERKS Body Mass Index 29.53 06/14/2024 8:40 AM SUPERVISOR STATEMENT CLERKS Plan of Treatment Upcoming Encounters Date Type Department Care Team (Late st Contact Info) Description 06/19/2024 8:13 AM SUPERVISOR STATEMENT CLERKS Hospital Encounter [address] [place] [address] [place] [address] [place] [phone] 06/19/2024 8:13 AM SUPERVISOR STATEMENT CLERKS Anesthesia Event [address] [place] [address] Cassius Moreno CRNA [facility] [employer] [place] [address] 06/19/2024 8:13 AM SUPERVISOR STATEMENT CLERKS - 06/19/2024 9:50 AM SUPERVISOR STATEMENT CLERKS Surgery [address] [place] [address] [place] [address] [place] [phone] EXTRACOROPOREAL SHOCK WAVE LITHOTRIPSY Scheduled Procedures Name Priority Associated Diagnoses Date/Ti vt EXTRACOROPOREAL SHOCK WAVE LITHOTRIPSY N20.1, LEFT URETERAL STONE 06/19/2024 8:13 AM SUPERVISOR STATEMENT CLERKS CYSTOSCOPY RETROGRADES STENT INSERTION N20.1, LEFT URETERAL STONE 06/19/2024 8:13 AM SUPERVISOR STATEMENT CLERKS Health Maintenance Due Date Last Done Comments [...] Most Recently Relevant to Health Maintenance Insurance [facility] MEDIC[facility] Care Teams Senior Quality Control Technician Relationship Specialty Start Date End Date Kenny Franklin MD [address] [place] [address] PCP - General FAMILY PRACTICE 07/31/20
--- OUTSIDE RECORDS SUMMARY | 2024-06-14 15:14 | XMS_ITS | Encounter Summary ---
Author Organization [facility] Address [facility] [place] [address] Care Team Providers Care Senior Financial Analyst Name Role Phone Kenny Franklin MD Primary Care Provider Encounter Details Date Type Department Care Team [...] on file Legal Sex Male 10:08 PM REPAIR WEAVER Gender Identity Not on file Sexual Orientation Not on file documented as of this encounter Plan of Treatment Upcoming Encounters Date Type Department Care Team (Late st Contact Info) Description 06/19/2024 8:13 AM REPAIR WEAVER Hospital Encounter [place] [address] [address] [place] [address] [place] [phone] 06/19/2024 8:13 AM REPAIR WEAVER Anesthesia Event [place] [address] [address] Cassius Moreno CRNA [facility] [place] [address] 06/19/2024 8:13 AM REPAIR WEAVER - 06/19/2024 9:50 AM REPAIR WEAVER Surgery [place] [address] [address] [place] [address] [place] [phone] EXTRACOROPOREAL SHOCK WAVE LITHOTRIPSY Scheduled Procedures Name Priority Associated Diagnoses Date/Ti me EXTRACOROPOREAL SHOCK WAVE LITHOTRIPSY N20.1, LEFT URETERAL STONE 06/19/2024 8:13 AM REPAIR WEAVER CYSTOSCOPY RETROGRADES STENT INSERTION N20.1, LEFT URETERAL STONE 06/19/2024 8:13 AM REPAIR WEAVER documented as of this encounter Visit Diagnoses Not on filedocumented in this encounter Care Teams Senior Financial Analyst Relationship Specialty Start Date End Date Kenny Franklin MD [address] [place] [address] PCP - General FAMILY PRACTICE 07/31/20 documented as of this encounter
[2024-06-14 15:20] LABS: Basophils Percent Auto 0.4 % (0.2-1.2); Eosinophils Percent Auto 0.3 % (0-4.4); Hematocrit 44.9 % (42.0-52.0); Hemoglobin 15.4 g/dL (14.0-18.0); Immature Granulocyte Absolute 0.04 K/mm3 (0.00-0.031); Immature Granulocyte Percent A 0.4 % (0-0.5); Lymphocytes Absolute Auto 2.42 K/mm3 (0.9-3.2); Lymphocytes Percent Auto 22.5 % (18.3-44.2); Mean Corpuscular HGB Conc 34.3 g/dl (32-36); Mean Corpuscular Hemoglobin 32.4 pg (26-34); Mean Corpuscular Volume 94.3 fl (80-100); Monocytes Absolute Auto 0.7 K/mm3 (0.1-0.6); Monocytes Percent Auto 6.6 % (2.6-8.5); Neutrophils Absolute Auto 7.5 K/mm3 (1.3-6.7); Neutrophils Percent Auto 69.8 % (45.5-73.1); Platelet Count Result 213 k/mm3 (150-375); Red Blood Count 4.76 M/mm3 (4.6-6.20); White Blood Count 10.7 K/mm3 (4.5-10.0)
[2024-06-14 15:23] LABS: Alanine Aminotransferase 21 U/L (6-50); Albumin Level 4.4 g/dL (3.5-5.1); Alkaline Phosphatase 122 U/L (38-126); Anion Gap 9 mmol/L (4-12); Aspartate Amino Transferase 24 U/L (17-59); Bilirubin,Total 0.7 mg/dL (0.2-1.3); Blood Urea Nitrogen 20 mg/dL (9-20); Calcium 9.5 mg/dL (8.4-10.2); Carbon Dioxide 24 mmol/L (22-30); Chloride 104 mmol/L (98-107); Estimated CRCL calculation 40 ml/min; Estimated Glomerular Filt Rate 43; Glucose 94 mg/dL (65-110); Lipase 58 U/L (23-300); Potassium 4.3 mmol/L (3.4-5.0); Sodium 137 mmol/L (137-145)
--- NOTE | 2024-06-14 15:37 | HP_ITS ---
This report was moved to the correct visit on 06/18/2024. The original report was signed by Sukhwinder Orozco MD on 06/14/24 [id number]. History of Present Illness History of Present Illness Consent: Risks, benefits, and alternatives have been discussed and questions answered. Patient agrees to proceed with procedure. Chief complaint: Left ureteral stone Narrative: Edi Flores is a 64 year old male known to me from a kidney stone in 2021. He has had a several day history of increasingly severe left flank pain. Outside imaging and evaluation by my partner, Dr. Robins, reveals a 2.5 cm left proximal ureteral stone. He has unable to get scheduled for lithotripsy until next week. After discussion of options for pain alleviation he elects for cystoscopy with left ureteral stent placement. He is aware that he will need additional intervention for this large proximal ureteral stone in the future. KUB here shows a calcified stone Review of Systems Cardiovascular: Cardiovascular: Denies chest pain, Denies lightheadedness, Denies palpitations and Denies dyspnea Respiratory: Respiratory: Denies dyspnea Gastrointestinal: Gastrointestinal: Denies diarrhea, Denies nausea and Denies vomiting Genitourinary: Genitourinary: Denies hematuria and Denies dysuria Endocrine: Endocrine: Denies palpitations [facility] Past Medical History Medical History (Updated 12/18/21 @ 12:55 by Sukhwinder Orozco MD) Smoker Overweight (BMI 25.0-29.9) Social History Social History Smoking status: Current every day smoker Tobacco type: cigarettes Additional smoking assessment comments: 1/2ppd x40 Alcohol intake: current Drinks per week: 1 Living arrangements: with family Spiritual care concerns: No Meds Home Medications and Allergies Home Medications ?Medication ?Instructions ?Recorded ?Confirmed ?Type hydrocodone 10 mg-acetaminophen 1 tablet PO PRN 12/11/21 12/18/21 History 325 mg tablet tamsulosin 0.4 mg capsule 0.4 mg PO DAILY 12/11/21 12/18/21 History hydrocodone 5 mg-acetaminophen 325 1 - 2 tablet PO Q6H PRN pain #20 12/18/21 Rx mg tablet tabs sulfamethoxazole 800 1 tablet PO Q12H #6 tabs 12/18/21 Rx mg-trimethoprim 160 mg tablet Allergies Allergy/AdvReac Type Severity Reaction Status Date / Time No Known Allergies Allergy Verified 06/14/24 13:53 Exam Const: General: no acute distress Resp: Effort & Inspection: normal respiratory effort GI: Inspection: non-distended GI Palp: No abdominal tenderness and No Guarding due to palpation present (GI) Auscultation: normal bowel sounds Assessment and Plan Assessment and plan (1) Left ureteral stone: Code(s): N20.1 - Calculus of ureter Status: Acute Assessment and Plan: * Cystoscopy, left ureteral stent placement * Outpatient [facility] next week as previously arranged Please be advised this is a medical document. It is intended for ncmc-pa-ddzr communication. It is written in medical language and may contain unfamiliar abbreviations or verbiage. Medical documents are intended to carry relevant information, facts as evident, and the clinical opinion of the practitioner at the time of the encounter. This report may have been done utilizing a voice recognition system. Attempts have been made to correct errors. However, there may be uncorrected grammatical, spelling, and recognition errors present. The file time of this note does not necessarily represent the time the patient was seen. Report Initialized date/time: Sukhwinder Orozco MD 06/14/24 / 1537 Electronically signed by: Sukhwinder Orozco MD 06/14/24 1537 [facility]
--- NOTE | 2024-06-14 15:37 | HP_ITS ---
This report was moved to the correct visit on 06/18/2024. The original report was signed by Sukhwinder Orozco MD on 06/14/241536. History and Physical Update Update Date/Time: 06/14/24 15:37 History and Physical has been reviewed, including an updated exam of the patient. There are NO changes in the patient's condition. Risks, benefits, and alternatives have been discussed and questions answered. Patient agrees to proceed with procedure. Please be advised this is a medical document. It is intended for omia-km-fmxf communication. It is written in medical language and may contain unfamiliar abbreviations or verbiage. Medical documents are intended to carry relevant information, facts as evident, and the clinical opinion of the practitioner at the time of the encounter. This report may have been done utilizing a voice recognition system. Attempts have been made to correct errors. However, there may be uncorrected grammatical, spelling, and recognition errors present. The file time of this note does not necessarily represent the time the patient was seen. Report Initialized date/time: Sukhwinder Orozco MD 06/14/241536 Electronically signed by: Sukhwinder Orozco MD 06/14/241536 [facility]
--- OUTSIDE RECORDS SUMMARY | 2024-06-14 15:55 | XMS_ITS | Encounter Summary ---
Author Organization [facility] Address [facility] [place] [address] Care Team Providers Care Head Mechanic Name Role Phone Kenny Franklin MD Primary Care Provider [phone] Encounter Details Date Type Department Care Team [...] on file Legal Sex Male 10:08 PM UNIT TENDER Gender Identity Not on file Sexual Orientation Not on file documented as of this encounter Plan of Treatment Upcoming Encounters Date Type Department Care Team (Late st Contact Info) Description 06/19/2024 8:13 AM UNIT TENDER Hospital En[place] [address] [place] [address] [place] [phone] 06/19/2024 8:13 AM UNIT TENDER Anesthesia Event [place] [address] Cassius Moreno CRNA [facility] [place] [address] 06/19/2024 8:13 AM UNIT TENDER - 06/19/2024 9:50 AM UNIT TENDER [place] [address] [place] [address] [place] [phone] EXTRACOROPOREAL SHOCK WAVE LITHOTRIPSY Scheduled Procedures Name Priority Associated Diagnoses Date/Ti me EXTRACOROPOREAL SHOCK WAVE LITHOTRIPSY N20.1, LEFT URETERAL STONE 06/19/2024 8:13 AM UNIT TENDER CYSTOSCOPY RETROGRADES STENT INSERTION N20.1, LEFT URETERAL STONE 06/19/2024 8:13 AM UNIT TENDER documented as of this encounter Visit Diagnoses Not on filedocumented in this encounter Care Teams Head Mechanic Relationship Specialty Start Date End Date Kenny Franklin MD [address] [place] [address] PCP - General FAMILY PRACTICE 07/31/20 documented as of this encounter
--- OUTSIDE RECORDS SUMMARY | 2024-06-14 15:55 | XMS_ITS | Clinical Summary ---
Author Organization [facility] Address [address] [place] [address] Care Team Providers Care Rack Loader Name Role Phone Kenny Franklin MD Primary Care Provider [phone] Allergies No known active allergies Medications lisinopril [...] on file Legal Sex Male 10:08 PM MANUFACTURING HELPER Gender Identity Not on file Sexual Orientation [...] 90.7 kg (200 lb) 06/14/2024 8:40 AM MANUFACTURING HELPER Height 175.3 cm (5' 9 ) 06/14/2024 8:40 AM MANUFACTURING HELPER Body Mass Index 29.53 06/14/2024 8:40 AM MANUFACTURING HELPER Plan of Treatment Upcoming Encounters Date Type Department Care Team (Late st Contact Info) Description 06/19/2024 8:13 AM MANUFACTURING HELPER Hospital Encounter [address] [place] [address] [place] [address] [place] [phone] 06/19/2024 8:13 AM MANUFACTURING HELPER Anesthesia Event [address] [place] [address] Cassius Moreno CRNA [facility] [place] [address] 06/19/2024 8:13 AM MANUFACTURING HELPER - 06/19/2024 9:50 AM MANUFACTURING HELPER Surgery [address] [place] [address] [place] [address] [place] [phone] EXTRACOROPOREAL SHOCK WAVE LITHOTRIPSY Scheduled Procedures Name Priority Associated Diagnoses Date/Ti mi EXTRACOROPOREAL SHOCK WAVE LITHOTRIPSY N20.1, LEFT URETERAL STONE 06/19/2024 8:13 AM MANUFACTURING HELPER CYSTOSCOPY RETROGRADES STENT INSERTION N20.1, LEFT URETERAL STONE 06/19/2024 8:13 AM MANUFACTURING HELPER Health Maintenance Due Date Last Done Comments [...] Most Recently Relevant to Health Maintenance Insurance [employer] [facility] MEDICARE Care Teams Rack Loader Relationship Specialty Start Date End Date Kenny Franklin MD [address] [place] [address] PCP - General FAMILY PRACTICE 07/31/20
--- NOTE | 2024-06-14 16:00 | PC.NURSE ---
Pt walked to surgery by this nurse from ED waiting per Janie. Janie reports Dr. Orozco is waiting in OR for stone removal and stent placement
--- NOTE | 2024-06-14 16:13 | P.PNAN_ITS ---
Anes - Initial Pre Proc Eval Procedure: Operation Date: 06/14/24 16:00 Proposed Procedures p Cystoscopy, Left Ureteral Stent Placement - Sukhwinder Orozco MD Date/Time: 06/14/24 16:13 Surgeon: Sukhwinder Orozco MD Pre Op Diagnosis: sent from urology for kidney stone Patient Data Age: 64 Gender: M Height: 1.75 m Weight: 90.72 kg Last Vital Signs Temp 97.9 F 06/14/24 14:03 Pulse 78 06/14/24 14:03 Resp 17 06/14/24 14:03 BP 151/98 H 06/14/24 14:03 Pulse Ox 99 06/14/24 14:03 O2 Del Method Room Air 06/14/24 14:03 Allergies Allergy/AdvReac Type Severity Reaction Status Date / Time No Known Allergies Allergy Verified 06/14/24 16:12 Home Medications ?Medication ?Instructions ?Recorded ?Confirmed ?Type hydrocodone 10 mg-acetaminophen 1 tablet PO PRN 12/11/21 12/18/21 History 325 mg tablet tamsulosin 0.4 mg capsule 0.4 mg PO DAILY 12/11/21 12/18/21 History hydrocodone 5 mg-acetaminophen 325 1 - 2 tablet PO Q6H PRN pain #20 12/18/21 Rx mg tablet tabs sulfamethoxazole 800 1 tablet PO Q12H #6 tabs 12/18/21 Rx mg-trimethoprim 160 mg tablet Laboratory Tests 06/14/24 15:00 WBC 10.7 H K/mm3 (4.5-10.0) RBC 4.76 M/mm3 (4.6-6.20) Hgb 15.4 g/dL (14.0-18.0) Hct 44.9 % (42.0-52.0) MCV 94.3 fl (80-100) MCH 32.4 pg (26-34) MCHC 34.3 g/dl (32-36) RDW 12.0 % (11.5-14.5) Plt Count 213 k/mm3 (150-375) MPV 10.0 fl (7.4-10.4) Immature Gran % (Auto) 0.4 % (0-0.5) Neut % (Auto) 69.8 % (45.5-73.1) Lymph % (Auto) 22.5 % (18.3-44.2) [place] % (Auto) 6.6 % (2.6-8.5) Eos % (Auto) 0.3 % (0-4.4) Baso % (Auto) 0.4 % (0.2-1.2) Lymph # (Auto) 2.42 K/mm3 (0.9-3.2) [place]an # (Auto) 0.7 H K/mm3 (0.1-0.6) Eos # (Auto) 0.0 K/mm3 (0-0.3) Baso # (Auto) 0.0 K/mm3 (0.0-0.1) Abs Immat Gran (auto) 0.04 H K/mm3 (0.00-0.031) Absolute Neuts (auto) 7.5 H K/mm3 (1.3-6.7) Absolute Nucleated RBC 0.000 K/mm3 (0.0-0.012) Nucleated RBC % 0.0 % (0.0-0.2) Sodium 137 mmol/L (137-145) Potassium 4.3 mmol/L (3.4-5.0) Chloride 104 mmol/L (98-107) Carbon Dioxide 24 mmol/L (22-30) Anion Gap 9 mmol/L (4-12) BUN 20 mg/dL (9-20) Creatinine 1.63 H mg/dL (0.7-1.3) Estim Creat Clear Calc 40 ml/min Estimated GFR 43 L (59 - ) Glucose 94 mg/dL (65-110) Calcium 9.5 mg/dL (8.4-10.2) Total Bilirubin 0.7 mg/dL (0.2-1.3) AST 24 U/L (17-59) ALT 21 U/L (6-50) Alkaline Phosphatase 122 U/L (38-126) Total Protein 8.0 g/dL (6.3-8.2) Albumin 4.4 g/dL (3.5-5.1) Lipase 58 U/L (23-300) Patient hx anesthesia problems: none Family hx anesthesia problems: none Results Review: All pre-operative results and documents have been reviewed as part of the pre- operative evaluation. [facility] Past Medical History Medical History History of kidney stones Smoker Overweight (BMI 25.0-29.9) Social History Social History Smoking status: Current every day smoker Tobacco type: cigarettes Additional smoking assessment comments: 1/2ppd x40 Alcohol intake: current Drinks per week: 1 Living arrangements: with family Spiritual care concerns: No Anes - Eval Final PreProcedure Day of Procedure 06/14/24 16:13 Patient weight: normal Lungs: normal air movement Airway: Mallampati scale Neurological: alert and oriented Last oral intake: >/= 8 hours ASA classification: II Emergent: yes Anesthetic plan: proceed Anesthesia type and monitoring: general ETT and standard monitoring Results Review: All pre-operative results and documents have been reviewed as part of the pre- operative evaluation. BMI 30, smoker 1/2 ppd for many years. Now w ureteral stone. Informed Consent: The patient's anesthetic plan and its attendant risks and benefits were discussed with the patient/family/POA. Questions were solicited and answers provided to the satisfaction of the patient/family/POA.
[2024-06-14] MEDS: LACTATED RINGERS 1,000 ML 30 ML IV CONT (16:20)
[2024-06-14] MEDS: ceFAZolin 2 GM/D5W 50 ML 2 GM/50 ML BAG IVPB (16:24)
[2024-06-14] MEDS: LIDOCAINE 2% GEL UROJET 10 ML PKG MUCOUS MEM (16:41)
[2024-06-14] MEDS: ONDANSETRON INJ 4 MG/2 ML VIAL IV PUSH (17:01)
--- NOTE | 2024-06-14 17:01 | P.OP_ITS ---
Procedure Note - Detailed Date of Procedure 06/14/24 Pre-op Diagnosis Left mid ureteral calculus Post-op Diagnosis Same Procedure Performed Cystoscopy, left retrograde pyelography, left ureteral stent placement Surgeon Sukhwinder Orozco MD Anesthesia General Description of Procedure Patient brought to the operative suite was prepped and draped in routine sterile fashion while in dorsal lithotomy position after the uneventful induction of a general LMA anesthetic. Cystoscopy undertaken with a 19 F rigid cystoscope. There was no urethral stricture and very minimal prostatic hyperplasia. The bladder mucosa is normal. There was no intravesical foreign body or neoplasm. He has a single orthotopic ureteral orifice bilaterally. 0.035 in glidewire was advanced into his left renal pelvis and a retrograde pyelogram was obtained with a [place] catheter to outline the collecting system and ensure appropriate placement of a stent. A 0.48 variable length ureteral stent is positioned with the proximal coil in the renal pelvis and distal coil in the bladder. Scopes wire was removed and he was taken recovery room good condition. Packing No Pathology None sent Complications No immediate complications Condition Stable
== END 2024-06-14 18:05 | disposition home or self-care (01) ==
LOC: ANHED 15:52 → ANHSURGERY 15:53
PROVIDERS: Emergency Provider Physician Assistant; Visit Provider Urology
PROC: (CPT 52352; principal; 2024-06-14 16:00)
DX: N20.1 Calculus of ureter (principal); F17.210 Nicotine dependence, cigarettes, uncomplicated
CPT/HCPCS: 52332; 36415; 74018; 74420; 80053; 83690; 85025; 99285; C1758; C1769; C2617; J0330; J0690; J1100; J2405; J2704; J3010; J7120; Q9966